=== PATIENT | male | born 1980 | race Caucasian/White ===

== ENCOUNTER 2024-01-07 14:27 | Emergency (ER) | payer OTHER ==
[~2024-01-07] VITALS: Ht 175.3 cm; Wt 93.0 kg
[2024-01-07 14:34] VITALS: BP 117/73; RESP 18; TEMP 98.7; O2SAT 98
[2024-01-07 14:36] VITALS: PULSE 74
[2024-01-07] MEDS ORDERED: POLY17PO3 MT (15:50)
[2024-01-07] MEDS ORDERED: DOCU100T MT (15:50)
[2024-01-07] MEDS ORDERED: PHEN51CR24 TP (15:50)
== END 2024-01-07 18:21 | disposition home or self-care (01) ==
LOC: ER 14:27
DX: K64.9 Unspecified hemorrhoids (principal)
CPT/HCPCS: 99281